=== PATIENT | male | born 1990 | race Caucasian/White ===

== ENCOUNTER 2018-06-19 04:27 | Emergency (ER) | END 2018-06-19 06:09 | disposition home or self-care (01) ==

== ENCOUNTER 2018-10-21 21:21 | Emergency (ER) | payer SELFPAY ==
[~2018-10-21] VITALS: Ht 162.6 cm; Wt 95.8 kg
[~2018-10-21 21:21] MED LIST: ALBU8.5H8 INH; FLUT9.9S NASAL; MONT10TA21 PO
[2018-10-21 22:05] VITALS: Ht 162.6 cm; Wt 95.8 kg
[2018-10-22] MEDS ORDERED: CEPH-443 PO (03:44)
[2018-10-22] MEDS ORDERED: SULF1TAB31 PO (03:45)
[2018-10-22] MEDS ORDERED: CEFTRIAXONE 1 GM INJ IM ONE (04:00)
[2018-10-22 04:16] VITALS: BP 136/77; PULSE 78; RESP 17
--- NOTE | 2018-10-22 21:45 | ERD ---
ER Documentation Chief Complaint Chief Complaint REDNESS, SWELLING OF INSECT BITE, WARM TO TOUCH HPI This is a 28 yo M with significant PMHx who presents to ED with complaints of an redness and swelling to his right buttock x 1 week. Pt states denies any trauma but believes symptoms started after being bitten by an insect a few days ago. He is here with his brother who developed similar symptoms 3 days ago. Pt states he noticed a "bump" with redness which has since been getting progressively enlarged. He states he has been applying hydrogen peroxide to the area and n oticed bloody and watery drainage from the site earlier today. He became concerned and presented here for further evaluation. Denies any fevers, chills, nausea, vomiting, numbness, tingling focal weakness. Denies any recent abx use, IVDU or history of HIV. ROS All systems reviewed and are negative except as per history of present illness. Medications Home Meds Active Scripts Sulfamethoxazole/Trimethoprim* (Bactrim Ds* Tablet) 1 Each Tablet, 1 TAB PO BID, #14 TAB Prov:DISHIGRIKIANCLAUDIA PA-C 10/22/18 Cephalexin* (Keflex*) 500 Mg Capsule, 500 MG PO QID for 5 Days, CAP Prov:DISHIGRIKIANZERICHARD N PA-C 10/22/18 Montelukast Sodium* (Singulair*) 10 Mg Tablet, 10 MG PO QHS, #30 TAB Prov:FABIO,JEANINE 06/19/18 Fluticasone Propionate (Flonase Allergy Relief) 9.9 Ml [place].susp, 1 SPRAY NASAL BID, #1 BOTTLE TO EACH NOSTRIL Prov:FAIBO,JEANINE 06/19/18 Albuterol Sulfate* (Proair HFA*) 8.5 Gm Hfa.aer.ad, 2 PUFF INH Q4, #1 INHALER Prov:FABIO,JEANINE 06/19/18 Reported Medications [None] No Conflict Check 12/08/10 Allergies Allergies: Coded Allergies: No Known Allergies (Verified Allergy, Mild, 12/08/10) PMhx/Soc Medical and Surgical Hx: pt denies Medical Hx, pt denies Surgical Hx History of Surgery: No Anesthesia Reaction: No Hx Neurological Disorder: No Hx Respiratory Disorders: No Hx Cardiac Disorders: No Hx Psychiatric Problems: No Hx Miscellaneous Medical Probl: No Hx Alcohol Use: Yes (Social) Hx Substance Use: No Hx Tobacco Use: No Smoking Status: Never smoker Physical Exam Vitals Vital Signs Date Temp Pulse Resp B/P (MAP) Pulse Ox O2 O2 Flow FiO2 Time Delivery Rate 10/22/18 98.9 78 17 136/77 99 Room Air 04:16 (96) 10/21/18 98.4 82 16 147/77 98 22:05 (100) Physical Exam Const: No acute distress Head: Atraumatic Eyes: Normal Conjunctiva ENT: Normal External Ears, Nose and Mouth. Neck: Full range of motion. No meningismus. Skin: + right buttock with 1 inch x 0.75 inch area of ulceration and active serosanguineous drainage. Mild surrounding erythema and edema. No warmth. No tenderness to palpation. No area of fluctuance. Neur: Awake and alert Psych: Normal Mood and Affect Results 24 hrs Current Medications Medications Dose Sig/Mary Start Time Status Last (Trade) Ordered Route PRN Stop Time Admin Dose Reason Admin Ceftriaxone 1 gm ONCE ONCE 10/22/18 DC 10/22/18 Sodium IM 04:00 10/22/18 03:53 (Rocephin) 04:01 Procedures/MDM Pt is a 28 year old M who presents with probable abscess and cellulitis to his right buttock status post probable insect bite. Pt has an area of ulceration and serosanguinious discharge on physical exam, but no fluctuant abscess. He is afebrile and nontoxic appearing here in the ED. I have low suspicion for bacteremia, osteomyelitis, sepsis or septic shock syndrome. Would cultures were taken and dry gauze was applied to pt's wound. I recommended warm water soaks QID for 10 minutes daily and follow up in 2 days for wound recheck. Pt was given IM Rocphin here and discharged with Keflex and Bactrim. Pt agrees with treatment plan and understands strict return precautions. Prior to discharge, patients vital signs have been reviewed PRESCRIPTIONS: Keflex, Bactrim SPECIALIST FOLLOW UP RECOMMENDED: None Patient has been advised to follow up with primary care in 1-2 days . Patient's blood pressure was elevated (>120/80) but appears stable without evidence of hypertension emergency or urgency. The patient was counseled about the risks of hypertension and urged to pursue outpatient monitoring and therapy within a week with their primary care physician Departure Diagnosis: Primary Impression: Abscess Additional Impression: Bite wound Condition: Stable Patient Instructions: Cellulitis, Animal Bite, General Referrals: [facility] YOU HAVE RECEIVED A MEDICAL SCREENING EXAM AND THE RESULTS INDICATE THAT YOU DO NOT HAVE A CONDITION THAT REQUIRES URGENT TREATMENT IN THE EMERGENCY DEPARTMENT. FURTHER EVALUATION AND TREATMENT OF YOUR CONDITION CAN WAIT UNTIL YOU ARE SEEN IN YOUR DOCTORS OFFICE WITHIN THE NEXT 1-2 DAYS. IT IS YOUR RESPONSIBILITY TO MAKE AN APPOINTMENT FOR FOLOW-UP CARE. IF YOU HAVE A PRIMARY DOCTOR --you should call your primary doctor and schedule an appointment IF YOU DO NOT HAVE A PRIMARY DOCTOR YOU CAN CALL OUR PHYSICIAN REFERRAL HOTLINE AT IF YOU CAN NOT AFFORD TO SEE A PHYSICIAN YOU CAN CHOSE FROM THE FOLLOWING [facility] [address] [facility] [facility] [address] [facility] [facility] [address] [facility] [address] [facility] [address] [facility] [facility] [address] Additional Instructions: Please see her primary care provider return in 2 days for wound recheck. Take the antibiotics as prescribed. Return to the ED for any new or worsening symptoms. CLAUDIA BYNUM PA-C Oct 22, 2018 21:44
== END 2018-10-22 04:18 | disposition home or self-care (01) ==
LOC: FTE 21:21
DX: L02.31 Cutaneous abscess of buttock (principal); W57.XXXA Bitten or stung by nonvenomous insect and other nonvenomous arthropods, initial encounter; Y92.9 Unspecified place or not applicable
CPT/HCPCS: 87070; 96372; 99284; J0696